=== PATIENT | female | born 1970 | race Asian ===

== ENCOUNTER 2016-05-29 10:15 | Observation (INO) | payer BC ==
[2016-05-18 11:40] VITALS: BMI 22.0
--- NOTE | 2016-05-18 12:12 | PAT Medication Instructions ---
Service Date May 18, 2016. Current Home Medication List Entecavir (Entecavir), 1 TAB PO HS Medication Instructions For Your Scheduled Surgery - Take the following medications as scheduled the night before surgery: Entecavir (Entecavir), 1 TAB PO HS If you have any questions please call us at [phone] or [phone] ( Graciela) or [phone]
[2016-05-18 12:28] LABS: BASO % 0.8 %; BASO ABS # 0.03 K/uL (0-0.2); COMPLETE YES; EOS % 1.6 %; HEMATOCRIT 41.7 % (37-47); IG% 0.3 %; LYMPH % 40.4 %; LYMPH ABS # 1.55 K/uL (1.2-3.4); MEAN CORPUSCULAR HEMOGLOBIN 26.3 pg (25-34); MEAN CORPUSCULAR HGB CONC 32.9 g/dl (32-36); MONO % 7.8 %; NEUT % 49.1 %; PLATELET COUNT 280 K/uL (130-400); RED BLOOD COUNT 5.21 M/uL (4.2-5.4); WHITE BLOOD COUNT 3.84 K/uL (4.8-10.8)
[2016-05-18 12:39] LABS: PARTIAL THROMBOPLASTIN RATIO 1.2; PROTHROMBIN TIME (PATIENT) 10.4 SECONDS (9.0-12.0)
[2016-05-18 13:19] LABS: BUN/CREATININE RATIO 18.2 (10-20); CALCIUM 9.1 mg/dl (8.5-10.1); CREATININE 0.56 mg/dl (0.60-1.20); POTASSIUM 3.6 mmol/L (3.5-5.1)
[2016-05-18 13:22] LABS: ALB/GLOB RATIO 1.1 (0.9-2)
[2016-05-29] VITALS (8 sets, daily range): BP systolic 115–135; BP diastolic 58–86; PULSE 81–104; TEMP 36.4–36.8; O2SAT 97–100; Ht 162.6 cm; Wt 59.4 kg
[~2016-05-29] VITALS: Ht 162.6 cm; Wt 59.4 kg
[~2016-05-29 10:15] MED LIST: CEFAZOLIN 2000 MG/60 ML D5W IV SCH; ENTE1TAB PO; FENTANYL CITRATE INJ 50 MCG/1 ML 2 ML VIAL ONE; LACTATED RINGER'S 1000ML 1,000 ML IV SCH; MIDAZOLAM HCL 1 MG/ML 2ML VIAL ONE
--- NOTE | 2016-05-29 10:39 | History & Physical Bridge Note ---
H&P Re-Evaluation Bridge Note: I have examined the patient, reviewed the History & Physical and in the interval since the performance of the History & Physical I have noted the following changes of clinical significance: No changes noted
[2016-05-29] MEDS ORDERED: FENTANYL CITRATE INJ 50 MCG/1 ML 2 ML VIAL IV PRN (11:00)
[2016-05-29] MEDS ORDERED: ATROPINE SULFATE 0.1 MG/ML 5ML SYR IV PRN (11:00)
[2016-05-29] MEDS ORDERED: EpHEDrine SULFATE INJ 50 MG/ML AMP IV PRN (11:00)
[2016-05-29] MEDS ORDERED: ONDANSETRON INJ 2 MG/ML 2 ML VIAL IV PRN ×2 (11:00→14:45)
--- NOTE | 2016-05-29 11:21 | OB/GYN Progress Note ---
CUSTOMER SALES CONSULTANT Progress Note Date of Service: May 29, 2016. Discussed with the patient about the pros and cons of removing both ovaries Early menopause and the risks of that Discussed treatment options of menopausal symptoms with estrogen replacement Discussed the future risk of ovarian cancer and the chances of having another surgery for remained ovary if she likes to keep her left ovary After long conversation with her and she decided to have both ovaries removed as planned All questions were answered
--- NOTE | 2016-05-29 11:40 | OB/GYN Progress Note ---
CAMERA TUNING ENGINEER Progress Note Date of Service: May 29, 2016. Patient talked to her doctor friend and they decided to keep her left ovary, just remove the cyst from left ovary and keep the left ovary if it look normal She understands the right side has large cyst, may not be able to save the right ovary She agrees with right salpingoophorectomy She desires both removed if it any suspicion for cancer Discussed risk of ovarian cancer and 5-10% risk of having another surgery for retained ovary for either benign or malignant reasons All questions were answered
[2016-05-29] MEDS ORDERED: BUPIVACAINE/EPINEPHRINE 0.5% MPF 1:200,000 30 ML VIAL ONE (12:16)
[2016-05-29] MEDS ORDERED: ONDANSETRON INJ 2 MG/ML 2 ML VIAL ONE (13:48)
[2016-05-29] MEDS ORDERED: ROCURONIUM BROMIDE 10 MG/ML 5 ML VIAL ONE (13:48)
[2016-05-29] MEDS ORDERED: GLYCOPYRROLATE INJ 0.2 MG/ML VIAL ONE (13:48)
[2016-05-29] MEDS ORDERED: LIDOCAINE HCL 2% 2 ML VIAL (20MG/ML) ONE (13:48)
[2016-05-29] MEDS ORDERED: KETOROLAC TROMETHAMINE 30 MG/ML VIAL ONE (13:48)
[2016-05-29] MEDS ORDERED: NEOSTIGMINE METHYLSULFATE 5 MG/5 ML SYR ONE (13:48)
[2016-05-29] MEDS ORDERED: DEXAMETHASONE SOD INJ 4 MG/ML VIAL ONE (13:48)
[2016-05-29] MEDS ORDERED: PROPOFOL IV EMULSION 10 MG/ML 20 ML VIAL IV ONE (13:48)
[2016-05-29] MEDS ORDERED: FENTANYL CITRATE INJ 50 MCG/1 ML 2 ML VIAL ONE (13:52)
[2016-05-29] MEDS ORDERED: LACTATED RINGER'S 1000ML 1,000 ML IV SCH (14:42)
[2016-05-29] MEDS ORDERED: SIMETHICONE 80 MG CHEW PO PRN (14:45)
[2016-05-29] MEDS ORDERED: MEPERIDINE HCL 50 MG/ML CARP IV PRN (14:45)
[2016-05-29] MEDS ORDERED: PROMETHAZINE HCL INJ 12.5 MG in SODIUM CHLORIDE 0.9% 50ML 50 ML IV PRN (14:45)
[2016-05-29] MEDS ORDERED: OXYCODONE/ACETAMINOPHEN 5-325 TAB PO PRN ×2 (14:45)
[2016-05-29] MEDS ORDERED: MEPERIDINE HCL 75 MG/ML CARP IV PRN (14:45)
[2016-05-29] MEDS ORDERED: PROMETHAZINE HCL INJ 25 MG in SODIUM CHLORIDE 0.9% 50ML 50 ML IV PRN (14:45)
[2016-05-29] MEDS ORDERED: IBUPROFEN 600 MG TAB PO PRN (14:45)
[2016-05-29] MEDS ORDERED: ACETAMINOPHEN 325 MG TAB PO PRN (14:45)
--- NOTE | 2016-05-29 15:12 | [facility] Post Operative Brief Note ---
Immediate Operative Summary Operative Date May 29, 2016. Pre-Operative Diagnosis Bilateral Ovarian Cysts Post-Operative Diagnosis Same as preoperative Procedure(s) Performed Exam Under Anesthesia; Laparoscopy; Pelvic Washings; Laparascopic Right Salpingo-Oophorectomy; Left Ovarian Cystectomy and Partial left salpingectomy, extensive ZELDA Surgeon Dr. Mckeon Auricular Therapist Surgeon(s) Dr. Sifuentes; Dr. Jefferson Estimated Blood Loss 100ml Findings 10X10 CM right ovary with cyst in it Extensive adhesion of omentum to pelvis Specimens CYTOLOGY: 1) Pelvic Washings for Cytology, Left OR8 @ 1302 2) Right Ovarian Cyst Fluid for Cytology, Left OR8 @ 1306 PERMANENT: A.) Right ovary, fallopian tube and cyst B.) Left partial fallopian tube with cyst wall Drains Godfrey Anesthesia GETA Complication(s) None Disposition Recovery Room / PACU
[2016-05-29] MEDS ORDERED: IV FLUIDS COMPLETED PRN (15:15)
--- NOTE | 2016-05-29 15:19 | Anesthesiology Progress Note ---
Anesthesia Post Op Note Date & Time May 29, 2016 at 15:20 Vital Signs Pain Intensity: 2 Vital Signs Past 12 Hours Date Time Temp Pulse Resp B/P Pulse Ox O2 Delivery O2 Flow Rate FiO2 05/29/16 15:10 36.5 84 19 134/81 100 Nasal Cannula 2 05/29/16 15:00 85 16 125/76 100 Mask 10 05/29/16 14:50 93 19 129/77 100 Mask 10 05/29/16 14:40 36.5 97 16 112/77 100 Mask 10 05/29/16 10:44 36.7 86 16 122/73 97 Room Air Notes Mental Status: alert / awake / arousable, participated in evaluation Pt Amnestic to Procedure: Yes Nausea / Vomiting: adequately controlled Pain: adequately controlled Airway Patency, RR, SpO2: stable & adequate BP & HR: stable & adequate Hydration State: stable & adequate Anesthetic Complications: no major complications apparent
--- NOTE | 2016-05-29 16:42 | OPERATIVE REPORT ---
DATE OF OPERATION: 05/29/2016 PREOPERATIVE DIAGNOSES: The patient is a 45-year-old 1, para 1-0-0-1 female with a history of prior total abdominal hysterectomy and now with 10 cm right ovarian cyst and 4 cm left ovarian simple cyst. POSTOPERATIVE DIAGNOSES: Same and extensive adhesion of omentum to pelvis culde sac and pelvic sidewalls. PROCEDURES: Examination under anesthesia, operative laparoscopy, pelvic washings, right salpingo-oophorectomy, extensive lysis of adhesions and left ovarian cystectomy with partial left salpingectomy. SURGEON: Carlos Alberto Mckeon MD ASSISTANTS: Dr. Sifuentes and Dr. Jefferson. ESTIMATED BLOOD LOSS: 100 mL. DRAINS: Godfrey catheter. 100 ML clear urine ANESTHESIA: General endotracheal. FLUIDS: 1700 mL of lactated Ringer's. COMPLICATIONS: None. FINDINGS: Examination under anesthesia: 1) Absent cervix 2) Midline 14-week size pelvic mass originating from the right side 3) Nonpalpable left adnexa Intraoperative findings: 1) Extensive adhesion of omentum to the pelvis including sidewalls as well as the cul-de-sac 2) Right ovary was enlarged with a 10 x 10 cm hemorrhagic cyst 3) Left ovary was embedded under the extensive adhesions of omentum and the pelvic side wall and it had a small 3 x 4 cm hemorrhagic cyst 4) No uterus 5) Normal bowels and upper abdomen. DESCRIPTION OF PROCEDURE: The patient was taken to the operating room where general anesthesia was found to be adequate. She was placed in dorsal lithotomy position and prepared and draped in usual sterile fashion and 0.5% lidocaine was used for local anesthesia in the periumbilical skin. There was old scar from prior cholecystectomy 1 cm superior to the umbilicus. The same scar was used for incision. About 12 mm of incision was made and the subcuticular fat tissue was dissected off with the tip of Debo clamp. The fascia was visualized, grasped with Debo clamp and elevated and the Veress needle was inserted gently from the fascia Then normal saline testing was done with the Veress needle and it was freely floating into the abdominal cavity and suctioned clear fluid and then CO2 gas was attached to the Veress needle for Pneumoperitoneum. Intraabdominal entrance pressure was 2 mmHg. It was set to 15. About 3 liters of CO2 gas was used for pneumoperitoneum and then the Veress needle was removed. An 11 mm optic trocar was placed from the incision under direct visualization with the scope and abdominal entrance was confirmed. Upon entering the abdomen, the upper abdomen appeared to be normal. The patient has a history of cholecystectomy. Then the pelvis was visualized. There was a midline 10 x 10 cm mass. It was orginating from the right adnexa. It appeared to be hemorrhagic cyst and unable to identify the left ovary due to extensive adhesion of the omentum to the pelvic sidewalls as well as the cul-de-sac. Then another incision was made from in the midline above the pubic bone. The patient's had the old scar from hysterectomy was used. Then another 11 mm trocar was placed from suprapubic area under direct visualization and through that the pelvic washings were obtained, irrigated with warm normal saline and suctioned and sent for cytology. Then another trocar was placed from to the left lower quadrant with a 5 mm trocar under direct visualization. The patient was placed in dorsal Trendelenburg position. The right ovary was identified in its entirety and there were adhesions around the right ovary and omentum and those adhesions were reduced with the LigaSure without any difficulty. Then, a laparoscopic needle was entered under direct visualization from the suprapubic port and the cyst was drained and the fluid was sent for cytology and then the mass shrunk significantly and the needle was removed and then the right ovarian wall with the cyst in it was held with grasper and there were some omental adhesions under this right ovary. Those were lysed with the LigaSure device. Then the right infundibulopelvic ligament was identified, grasped with LigaSure device, coagulatedx3 and cut and then the incision was continued down towards the right adnexa, again with LigaSure was used for coagulation and then cut. The right ovary with cyst capsule in it and the tube excised completely. Excellent hemostasis was achieved. It was placed in an Endobag and removed from suprapubic port. Then the attention was turned to the pelvis where the extensive omental adhesions were found in the cul-de-sac as well as on the left pelvic sidewall. Omentum was held with the grasper and these adhesions were coagulated and cut with the LigaSure device until we were able to visualize the left adnexa. There was a slightly enlarged left ovary and the tube adhered over it on the left adnexa. This tubo-ovarian complex was densely adhered to the left lower pelvic sidewall. Some of the these adhesions were excised with the LigaSure to be able to see the left ovary and the cyst better. The cyst was also drained with a laparoscopic needle and then the left fallopian tube covering the cyst and the cyst wall were coagulated with LigaSure and excised and sent for pathology. The remaining ovary appeared to be normal. Some of the adhesions to the posterior cul-de-sac were excised with the LigaSure device from the omentum and excellent hemostasis was achieved. The bowel surfaces were visualized to be normal. Pelvis and omentum were irrigated with normal saline and suctioned. Good hemostasis was achieved. The decision was made to end the procedure. C02 Gas was stopped. All the trocars were removed from patient's abdomen. Gas was emptied completely from her abdomen. The fascial incisions were repaired with 0 Vicryl [id number] stitches.The skin incisions were reapproximated with 4-0 Monocryl in a subcuticular fashion. The patient tolerated the procedure well. Sponge, lap, needle and instrument counts were correct x3. She was given 2 grams of cefazolin before surgery. She was taken to recovery room in stable condition. No complications happened and I was present during whole procedure. I attest to the content of the Intraoperative Record and any orders documented therein. Any exceptions are noted below. ANGELICA
--- NOTE | 2016-05-29 16:56 | OB/GYN Progress Note ---
BUTTON GRADER Progress Note Date of Service: May 29, 2016. Postop check Patient is seen and examined Feels well, no complaints Pain is under control with meds 04/10 now No CP/ SOB/ Dizziness/ N&V/ VB/ Leg pain Not OOB yet Tolerating clears Explained about the surgery and findings She likes to go home if she can tonight Date Time Temp Pulse Resp B/P Pulse Ox O2 Delivery O2 Flow Rate FiO2 05/29/16 15:40 98 Room Air 05/29/16 15:40 36.8 87 18 125/77 100 Nasal Cannula 2.0 05/29/16 15:40 98 Room Air 05/29/16 15:20 85 20 134/76 100 Nasal Cannula 2 05/29/16 15:10 36.5 84 19 134/81 100 Nasal Cannula 2 05/29/16 15:00 85 16 125/76 100 Mask 10 05/29/16 14:50 93 19 129/77 100 Mask 10 05/29/16 14:40 36.5 97 16 112/77 100 Mask 10 05/29/16 10:44 36.7 86 16 122/73 97 Room Air PE: General: Alert, orientedx3, NAD CVS: S1S2 RRR Lungs: CTAB Abd: soft, NT, ND, BS+, Incisions C/D/I No VB Ext: NT, no edema, SCD's on AP: 45 yo female s/p EUA, Laparoscopy, ZELDA, RSO, left ovarian cystectomy , pod#0 VSS Afebrile doing well Continue to routine postop care Encourage PO intake, may ambulate D/C h[place] tonight after blood work Anticipate DC in am
[2016-05-29] MEDS ORDERED: MTR600X PO (17:08)
[2016-05-29] MEDS ORDERED: OXYC-57 PO (17:08)
--- NOTE | 2016-05-29 17:11 | Discharge Instructions ---
Discharge Instructions Date of Service May 29, 2016. Admission Reason for Admission: Ovarian Cyst Discharge Discharge Diagnosis / Problem: Laparoscopic rigth salpingoophorectomy, lysis of adhesions, left ovaria cys Discharge Goals Goal(s): Routine recovery after surgery, Continuing MERCHANDISE EXECUTION LEADER care Activity Recommendations Activity Limitations: as noted below Lifting Limitations: no more than 10 pounds Exercise/Sports Limitations: until after follow-up appointment May Resume Sexual Activity: after follow-up appointment Shower/Bathe: keep incision dry Driving or Machine Use: SPECIAL CARE INSTRUCTIONS: * Check temperature twice daily for one week. Report any elevation over 100.4 degrees Fahrenheit (38.0 degrees Celsius). * Call office in the next few days for return appointment. * Post-operative discomfort may consist of a sore throat, a "bloated" feeling and pain in the shoulders. These are normal symptoms which usually only last for two or three days. CALL WITH FEVER, CHILLS, NAUSEA, VOMITING, UNABLE TO PASS GAS, INCREASED PAIN DESPITE USE OF MEDICATIONS, DRAINAGE FROM INCISIONS FOLLOW UP VISIT: Keep any scheduled doctor appointments. . Current Hospital Diet Patient's current hospital diet: Discharge Diet Recommended Diet: Regular Diet Procedures Procedures Performed: Exam Under Anesthesia; Laparoscopy; Pelvic Washings; Laparascopic Right Salpingo-Oophorectomy; Left Ovarian Cystectomy and Partial left salpingectomy, extensive ZELDA Pending Studies Studies pending at discharge: no Medical Emergencies . Who to Call and When: Medical Emergencies: If at any time you feel your situation is an emergency, please call 911 immediately. . Non-Emergent Contact Non-Emergency issues call your: Primary Care Provider, Surgeon Call Non-Emergent contact if: temperature is above 100.5, your pain is not controlled, your pain is worsening, wound has increased drainage, wound has increased redness, wound has increased pain . . "Provider Documentation" section prepared by Carlos Alberto Mckeon. VTE Core Measure Inpt VTE Proph given/why not?: Treatment not indicated
[2016-05-29] MEDS: ACETAMINOPHEN IV 1,000 MG in EMPTY BAG 0 ML IV SCH (18:06)
[2016-05-29 20:35] LABS: HEMATOCRIT 40.3 % (37-47)
[2016-05-29] MEDS ORDERED: DOCUSATE SODIUM 100 MG CAP PO SCH (21:00)
[2016-05-30] MEDS: ACETAMINOPHEN IV 1,000 MG in EMPTY BAG 0 ML IV SCH
[2016-05-30 03:30] VITALS: BP 118/74; PULSE 85; TEMP 36.8; O2SAT 96
[2016-05-30 06:31] LABS: BASO % 0.1 %; BASO ABS # 0.01 K/uL (0-0.2); COMPLETE YES; EOS % 0.1 %; HEMATOCRIT 38.2 % (37-47); IG% 0.1 %; LYMPH % 18.7 %; LYMPH ABS # 1.55 K/uL (1.2-3.4); MEAN CELL VOLUME 79.4 fL (80-100); MEAN CORPUSCULAR HEMOGLOBIN 26.2 pg (25-34); MEAN PLATELET VOLUME 10.4 fL (7.4-10.4); MONO % 10.3 %; NEUT % 70.7 %; PLATELET COUNT 252 K/uL (130-400); RED BLOOD COUNT 4.81 M/uL (4.2-5.4); WHITE BLOOD COUNT 8.31 K/uL (4.8-10.8)
[2016-05-30 06:56] LABS: BUN/CREATININE RATIO 16.3 (10-20); CREATININE 0.49 mg/dl (0.60-1.20); POTASSIUM 3.7 mmol/L (3.5-5.1)
--- NOTE | 2016-05-30 07:05 | OB/GYN Progress Note ---
UNDERGROUND ELECTRICIAN Progress Note Date of Service: May 30, 2016. Patient is seen and examined. She feels well, no complaints. Pain is under control with oral meds. Ambulating without dizziness Voiding without difficulty Tolerating regular diet with out N&V Flatus + BM NEG No fever/ chills/ CP/ SOB/ N&V/ Leg pain Discussed about surgery and findings Date Time Temp Pulse Resp B/P Pulse Ox O2 Delivery O2 Flow Rate FiO2 05/30/16 03:30 36.8 85 18 118/74 96 Room Air 05/29/16 23:25 36.7 81 18 135/83 98 Room Air 05/29/16 23:25 98 Room Air 05/29/16 19:30 97 Room Air 05/29/16 19:30 36.7 83 18 115/75 97 Room Air 05/29/16 18:30 36.7 104 18 132/86 99 Room Air 05/29/16 17:40 36.8 104 16 133/58 98 Room Air 05/29/16 16:40 36.8 94 16 121/71 98 Room Air 05/29/16 16:10 36.4 88 18 117/67 98 Room Air 05/29/16 16:10 36.4 88 18 117/67 98 Room Air 05/29/16 15:40 98 Room Air 05/29/16 15:40 36.8 87 18 125/77 100 Nasal Cannula 2.0 05/29/16 15:40 98 Room Air 05/29/16 15:20 85 20 134/76 100 Nasal Cannula 2 05/29/16 15:10 36.5 84 19 134/81 100 Nasal Cannula 2 05/29/16 15:00 85 16 125/76 100 Mask 10 05/29/16 14:50 93 19 129/77 100 Mask 10 05/29/16 14:40 36.5 97 16 112/77 100 Mask 10 05/29/16 10:44 36.7 86 16 122/73 97 Room Air 8-Hour Column 05/29/16 05/29/16 05/30/16 15:59 23:59 07:59 Intake Total 1400 ml 1250 ml 270 ml Output Total 350 ml 1000 ml 1300 ml Balance 1050 ml 250 ml -1030 ml 24-Hour Column 05/30/16 07:59 Intake Total 2920 ml Output Total 2650 ml Balance 270 ml PE: General: Alert, orientedx3, NAD CVS: S1S2 RRR Lungs; CTAB Abd: soft, Flat, NT, NS, BS+ Incisions: Clean, dry, intact AP: 45 yo s/p Lap RSO,ZELDA,Leftovarian cystectomy,pod #1 VSS Afebrile doing well Instructions were given when to call All questions were answered D/C home , f/u in office
[2016-05-30 07:30] VITALS: BP 128/79; PULSE 67; TEMP 36.7; O2SAT 99
[2016-05-30 07:55] VITALS: BP 128/79; PULSE 67; TEMP 36.7; O2SAT 99
--- NOTE | 2016-06-05 07:20 | DISCHARGE SUMMARY ---
DETAILS OF ADMISSION: The patient is a 45-year-old G1, P 1-0-0-1 female who has a history of prior total abdominal hysterectomy, presented with a 10 cm persistent right ovarian cyst and 4 cm left ovarian cyst. She was scheduled for bilateral salpingo-oophorectomy per discussion at our office. Before surgery, she changed her mind and she wanted to keep her left ovary, and consent was changed to right salpingo-oophorectomy and left ovarian cystectomy. She was taken to OR and examination under anesthesia was done. Operative laparoscopy, pelvic washings, right salpingo-oophorectomy, extensive lysis of adhesions, and left ovarian cystectomy with partial left salpingectomy. See dictated operative notes for details. The patient recovered well in the recovery room and she was brought to 4th floor for observation overnight. In the postop period, the patient was doing well. Pain was under control with medications. Vital signs stable, afebrile. Urine output was good. The patient had no complaints and she was tolerating clears. Her physical exam was unremarkable. Her abdomen was soft, nontender. Incisions were clean, dry and intact. Godfrey was discontinued at night. She voided without difficulty. She slept overnight. Vital signs stable, afebrile, and the pain was under control with oral medications. She passed gas and she wanted to go home in the morning of postop day #1. Instructions were given when to call, prescriptions were written for pain. She is to be seen in the office in a week. All questions were answered. ANGELICA
== END 2016-05-30 08:15 | disposition home or self-care (01) ==
LOC: C.ACU 10:15 → C.MS4N 14:47 → EDBEDREQSVC 15:21
PROVIDERS: ADMIT Obstetrics & Gynecology; ATTEND Obstetrics & Gynecology
DX: N83.202 Unspecified ovarian cyst, left side (principal); N83.8 Other noninflammatory disorders of ovary, fallopian tube and broad ligament; K66.0 Peritoneal adhesions (postprocedural) (postinfection); Z90.710 Acquired absence of both cervix and uterus